=== PATIENT | female | born 1935 | race Caucasian/White ===

== ENCOUNTER 2021-04-08 16:16 | Emergency (ER) | payer MEDICARE, BC ==
[2021-04-08] MEDS ORDERED: Sodium Chloride 0.9% 10 ML Syringe FLUSH PRN (16:27)
[2021-04-08] MEDS ORDERED: Diltiazem 25 MG/5 ML SDV IVPUSH ONE ×3 (16:54→20:49)
[2021-04-08] MEDS ORDERED: Sodium Chloride 0.9% 1,000 ML IV SCH (17:00)
[2021-04-08] MEDS ORDERED: Iopamidol 755 Mg/ML 100 ML Bottle IV ONE (18:44)
[2021-04-08] MEDS ORDERED: Furosemide 40 MG/4 ML VIAL IVPUSH ONE (20:51)
[2021-04-08] MEDS ORDERED: Diltiazem 125 MG in Sodium Chloride 0.9% 100 ML IV SCH (21:00)
== END 2021-04-08 22:30 ==
LOC: FB.ED 16:16
DX: I48.91 Unspecified atrial fibrillation (principal); I11.0 Hypertensive heart disease with heart failure; I50.9 Heart failure, unspecified; D64.9 Anemia, unspecified; Z79.899 Other long term (current) drug therapy; Z20.822 Contact with and (suspected) exposure to COVID-19
CPT/HCPCS: 36415; 51702; 71275; 80053; 81001; 82270; 83735; 83880; 84484; 85025; 85379; 87086; 87804; 93005; 96365; 96375; 96376; 99285; J1940; J3490; J7030; Q9967; U0002